=== PATIENT | male | born 1960 | race Two or more races ===

== ENCOUNTER 2020-01-23 06:45 | Inpatient (IN) | payer MEDICAID, OTHER, SELFPAY ==
[~2020-01-23] VITALS: Ht 177.8 cm; Wt 95.6 kg
--- NOTE | 2020-01-23 07:16 | NUR ---
Pt sitting on gurney in patient gown. NADN. No needs expressed. Call light within reach. ophthalmic technologist at bedside.
--- NOTE | 2020-01-23 07:30 | NUR ---
Pt resting on gurney connected to NIBP cuff, continous pulse ox monitor, and vehicle monitor technician. Pt reports cough and shorntess of breath for 5 days, urinary pain, burning, and possible retention for 4 days and bilateral swelling. Pt states, " [facility] left because [facility] was taking too long." Pt denies significant past medical history. Pt poor historian. Please see physical assessment. Pt is AOX4, skin is pink, warm, dry with bilateral lower extremity swelling. Pt has unlabored respirations with even chest rise and fall. Bed rail up for safety measures.
[2020-01-23] MEDS ORDERED: amlodipine (07:42)
[2020-01-23] MEDS ORDERED: potassium (07:42)
[2020-01-23] MEDS ORDERED: metoprolol (07:42)
[2020-01-23] MEDS ORDERED: lasix (07:42)
[2020-01-23 08:24] LABS: ANION GAP 7 mmol/L (5-15); CALCIUM 7.3 mg/dL (8.5-10.1); CHLORIDE 116 mmol/L (98-107)
[2020-01-23 08:29] LABS: ALANINE AMINOTRANSFERASE 30 U/L (12-78); ALKALINE PHOSPHATASE 72 U/L (45-117); BASOPHILS # (AUTO) 0.06 x10^3/uL (0-0.1); BASOPHILS % (AUTO) 1 % (0-1); BILIRUBIN,TOTAL 0.2 mg/dL (0.2-1.0); CREATININE 3.37 mg/dL (0.7-1.3); EOSINOPHILS # (AUTO) 0.35 x10^3/uL (0-0.4); EOSINOPHILS % (AUTO) 4 % (1-7); LYMPHOCYTES # (AUTO) 1.28 x10^3/uL (1-3.4); LYMPHOCYTES % (AUTO) 15 % (22-44); MD NO; MEAN CORPUSCULAR HEMOGLOBIN 29.5 pg (27.5-34.5); MEAN CORPUSCULAR HGB CONC 32.3 g/dL (33.2-36.2); MEAN PLATELET VOLUME 6.7 fL (7.4-10.4); MONOCYTES # (AUTO) 0.93 x10^3/uL (0.2-0.8); MONOCYTES % (AUTO) 11 % (2-9); NEUTROPHILS # (AUTO) 5.87 x10^3/uL (1.8-6.8); NEUTROPHILS % (AUTO) 69 % (42-75); PLATELET COUNT 307 x10^3/uL (130-400); RED BLOOD COUNT 3.49 x10^6/uL (4.38-5.82); RED CELL DISTRIBUTION WIDTH 14.3 % (9.4-14.8); TOTAL PROTEIN 6.5 g/dL (6.4-8.2); TROPONIN I 0.023 ng/mL (0.000-0.045)
[2020-01-23] MEDS ORDERED: FUROSEMIDE 40 MG/4 ML IV ONE (08:30)
[2020-01-23] MEDS ORDERED: FUROSEMIDE 40 MG/4 ML ONE (08:39)
[2020-01-23] MEDS ORDERED: SODIUM CHLORIDE 0.9% 1,000 ML IV ONE (08:42)
[2020-01-23] MEDS ORDERED: SODIUM CHLORIDE FLUSH 10ML SYR IVF ONE (09:00)
--- NOTE | 2020-01-23 09:25 | NUR ---
IV ESTABLISHED AND MEDICATED WITH LASIX NOTED ON SEP. PT NOTED TO HAVE LABORED BREATHING WHILE AT REST.
[2020-01-23 09:39] LABS: MICROSCOPIC INDICATED
--- NOTE | 2020-01-23 10:10 | NUR ---
Provided report to PAMELA Renteria. All questions answered. PAMELA Renteria to assume care at this time.
--- NOTE | 2020-01-23 10:10 | NUR ---
RECEIVED REPORT FROM SYED SANTIAGO AND ASSUMED CARE OF PT. PT ON HOSPITAL BED FOR COMFORT. STATES HE HAS VOIDED 3/4 OF URINAL SINCE GIVEN LASIX. PROVIDED SNACKS
--- NOTE | 2020-01-23 11:14 | NUR ---
BANQUET PREP COOK SPEAKING WITH PT. ASKED RN TO TURN OFF NORMAL SALINE.
[2020-01-23] MEDS ORDERED: ACETAMINOPHEN 325 MG TABLET PO PRN (13:00)
[2020-01-23] MEDS ORDERED: POLYETHYLENE GLYCOL 17 GM PACKET PO PRN (13:00)
[2020-01-23] MEDS ORDERED: DOCUSATE 100 MG CAPSULE PO PRN (13:00)
[2020-01-23] MEDS ORDERED: BISACODYL 10 MG SUPP PR PRN (13:00)
--- NOTE | 2020-01-23 13:07 | NUR ---
BREAK RN: PT ATE APPROX 25% OF MEAL. VSS, CALL LIGHT W/I REACH.
[2020-01-23 13:27] LABS: TROPONIN I < 0.015 ng/mL (0.000-0.045)
[2020-01-23] MEDS ORDERED: HEPARIN 5,000 UNITS/ML, 1ML ONE (14:05)
[2020-01-23] MEDS: HEPARIN 5,000 UNITS/ML, 1ML SQ SCH ×2 (14:19→20:48)
[2020-01-23] MEDS ORDERED: HYDROcodone/APAP 5/325 TABLET ONE (14:26)
[2020-01-23] MEDS: HYDROcodone/APAP 5/325 TABLET PO PRN (14:29)
--- NOTE | 2020-01-23 14:37 | NUR ---
C/O THROAT PAIN AND MEDICATED NOTED ON SEP.
--- NOTE | 2020-01-23 14:57 | NUR ---
REPORT TO ERIN SANTIAGO. TO BE TRANSPORTED TO THE FLOOR
[2020-01-23 15:56] VITALS: BP 178/108
[2020-01-23] MEDS: LABETALOL 5MG/ML, 20ML IVPush PRN (16:33)
[2020-01-23 17:05] VITALS: BP 158/92
[2020-01-23] MEDS ORDERED: AMLO-150 PO (18:03)
[2020-01-23] MEDS ORDERED: TAMS-11 PO (18:03)
[2020-01-23] MEDS ORDERED: POTA20TA14 PO (18:03)
[2020-01-23] MEDS ORDERED: MAGN400T36 PO (18:03)
[2020-01-23] MEDS ORDERED: FURO20TA3 PO (18:03)
[2020-01-23] MEDS ORDERED: METO50TA82 PO (18:07)
[2020-01-23 18:33] VITALS: BP 169/97
[2020-01-23 19:17] LABS: TROPONIN I < 0.015 ng/mL (0.000-0.045)
[2020-01-23] MEDS: METOPROLOL TARTRATE 50 MG TAB PO SCH (20:48)
[2020-01-23] MEDS ORDERED: hydrALAzine 20 MG/ML, 1ML IV ONE (21:30)
[2020-01-24 00:02] VITALS: BP 164/93
[2020-01-24] MEDS: HYDROcodone/APAP 5/325 TABLET PO PRN ×2 (01:24→22:59)
[2020-01-24 05:27] LABS: BASOPHILS # (AUTO) 0.06 x10^3/uL (0-0.1); BASOPHILS % (AUTO) 1 % (0-1); EOSINOPHILS # (AUTO) 0.31 x10^3/uL (0-0.4); EOSINOPHILS % (AUTO) 3 % (1-7); LYMPHOCYTES # (AUTO) 1.52 x10^3/uL (1-3.4); LYMPHOCYTES % (AUTO) 16 % (22-44); MD NO; MEAN CORPUSCULAR HEMOGLOBIN 29.7 pg (27.5-34.5); MEAN CORPUSCULAR HGB CONC 32.6 g/dL (33.2-36.2); MEAN PLATELET VOLUME 6.5 fL (7.4-10.4); MONOCYTES # (AUTO) 1.02 x10^3/uL (0.2-0.8); MONOCYTES % (AUTO) 11 % (2-9); NEUTROPHILS # (AUTO) 6.39 x10^3/uL (1.8-6.8); NEUTROPHILS % (AUTO) 69 % (42-75); PLATELET COUNT 335 x10^3/uL (130-400); RED BLOOD COUNT 3.47 x10^6/uL (4.38-5.82); RED CELL DISTRIBUTION WIDTH 14.5 % (9.4-14.8)
[2020-01-24] MEDS: HEPARIN 5,000 UNITS/ML, 1ML SQ SCH ×3 (05:29→20:28)
[2020-01-24 05:43] LABS: ANION GAP 8 mmol/L (5-15); CHLORIDE 114 mmol/L (98-107); CHOLESTEROL, TOTAL 199 mg/dL (140-239); CREATININE 2.79 mg/dL (0.7-1.3)
[2020-01-24 05:55] LABS: % IRON SATURATION 24 % (20-55); HDL CHOL % 20 % (26-37); HDL CHOLESTEROL (DIRECT) 40 mg/dL (40-60); IRON LEVEL 50 mcg/dL (65-175); LDL CHOLESTEROL,CALCULATED 127 mg/dL (54-169); LDL/HDL RATIO 3.2 (0.5-3.0); TOTAL IRON BINDING CAPACITY 205 mcg/dL (250-450); TRIGLYCERIDES 162 mg/dL (50-200); VLDL CHOLESTEROL 32 mg/dL (0-25)
[2020-01-24 08:10] VITALS: BP 168/87
[2020-01-24] MEDS: METOPROLOL TARTRATE 50 MG TAB PO SCH (08:48)
[2020-01-24] MEDS: GUAIFENESIN ER 600 MG TABLET PO SCH ×2 (08:48→20:26)
[2020-01-24] MEDS: TAMSULOSIN 0.4 MG CAP.ER.24H PO SCH (08:48)
[2020-01-24] MEDS: FUROSEMIDE 40 MG/4 ML IV SCH ×2 (08:55→17:13)
[2020-01-24] MEDS ORDERED: AMLODIPINE 5 MG TABLET PO SCH (09:00)
[2020-01-24 12:11] VITALS: BP 167/107
[2020-01-24 14:57] VITALS: BP 171/100
[2020-01-24] MEDS: LABETALOL 5MG/ML, 20ML IVPush PRN (15:02)
[2020-01-24 15:20] LABS: ANA SCREEN NEGATIVE (Negative)
[2020-01-24] MEDS ORDERED: hydrALAzine 20 MG/ML, 1ML IV PRN (17:30)
[2020-01-24 20:24] VITALS: BP 150/86
[2020-01-24] MEDS: AMLODIPINE 5 MG TABLET PO SCH (20:26)
[2020-01-24 20:31] LABS: CREATININE,URINE RANDOM 39.7 mg/dL
[2020-01-24] MEDS ORDERED: METOPROLOL TARTRATE 50 MG TAB PO SCH (21:00)
[2020-01-25 01:47] VITALS: BP 139/83
[2020-01-25 05:26] LABS: BASOPHILS # (AUTO) 0.05 x10^3/uL (0-0.1); BASOPHILS % (AUTO) 1 % (0-1); EOSINOPHILS # (AUTO) 0.34 x10^3/uL (0-0.4); EOSINOPHILS % (AUTO) 4 % (1-7); LYMPHOCYTES # (AUTO) 1.73 x10^3/uL (1-3.4); LYMPHOCYTES % (AUTO) 19 % (22-44); MD NO; MEAN CORPUSCULAR HEMOGLOBIN 29.6 pg (27.5-34.5); MEAN CORPUSCULAR HGB CONC 32.5 g/dL (33.2-36.2); MEAN PLATELET VOLUME 6.5 fL (7.4-10.4); MONOCYTES # (AUTO) 0.98 x10^3/uL (0.2-0.8); MONOCYTES % (AUTO) 11 % (2-9); NEUTROPHILS # (AUTO) 5.91 x10^3/uL (1.8-6.8); NEUTROPHILS % (AUTO) 66 % (42-75); PLATELET COUNT 335 x10^3/uL (130-400); RED CELL DISTRIBUTION WIDTH 14.6 % (9.4-14.8)
[2020-01-25 05:36] LABS: ANION GAP 7 mmol/L (5-15); CALCIUM 7.4 mg/dL (8.5-10.1); CHLORIDE 110 mmol/L (98-107)
[2020-01-25 05:38] LABS: CREATININE 2.51 mg/dL (0.7-1.3)
[2020-01-25] MEDS: HEPARIN 5,000 UNITS/ML, 1ML SQ SCH ×3 (05:44→21:55)
[2020-01-25] MEDS: FUROSEMIDE 40 MG/4 ML IV SCH ×2 (06:46→18:15)
[2020-01-25] MEDS ORDERED: ERGOCALCIFEROL 50,000 UNIT CAPSULE PO SCH (09:00)
[2020-01-25] MEDS: AMLODIPINE 5 MG TABLET PO SCH ×2 (09:17→21:55)
[2020-01-25] MEDS: GUAIFENESIN ER 600 MG TABLET PO SCH ×2 (09:17→21:56)
[2020-01-25] MEDS: TAMSULOSIN 0.4 MG CAP.ER.24H PO SCH (09:17)
[2020-01-25] MEDS: METOPROLOL TARTRATE 100 MG TAB PO SCH ×2 (09:18→21:56)
[2020-01-25 09:55] VITALS: BP 169/72
[2020-01-25 10:56] LABS: INTERNATIONAL NORMALIZED RATIO 0.98 (0.93-1.1); PROTHROMBIN TIME 10.4 Seconds (9.6-11.5)
[2020-01-25 13:25] VITALS: BP 164/71
[2020-01-25 13:27] LABS: AMPHETAMINE SCREEN, URINE Negative (Negative); BARBITURATE SCREEN, URINE Negative (Negative); BENZODIAZEPINE SCREEN, URINE Negative (Negative); CANNABINOID SCREEN, URINE Negative (Negative); COCAINE SCREEN, URINE Negative (Negative); METHADONE SCREEN, URINE Negative (Negative); OPIATE SCREEN, URINE Negative (Negative)
[2020-01-25 21:47] VITALS: BP 153/91
[2020-01-25] MEDS: HYDROcodone/APAP 5/325 TABLET PO PRN (21:56)
[2020-01-26] VITALS (8 sets, daily range): BP systolic 127–165; BP diastolic 79–99
[2020-01-26] MEDS: HEPARIN 5,000 UNITS/ML, 1ML SQ SCH ×4 (00:24→20:54)
[2020-01-26 05:25] LABS: ANION GAP 7 mmol/L (5-15); CALCIUM 7.6 mg/dL (8.5-10.1); CHLORIDE 111 mmol/L (98-107); CREATININE 2.52 mg/dL (0.7-1.3)
[2020-01-26] MEDS: GUAIFENESIN ER 600 MG TABLET PO SCH ×2 (08:24→20:50)
[2020-01-26] MEDS: AMLODIPINE 5 MG TABLET PO SCH ×2 (08:24→20:50)
[2020-01-26] MEDS: FUROSEMIDE 40 MG/4 ML IV SCH ×2 (08:25→16:22)
[2020-01-26] MEDS: TAMSULOSIN 0.4 MG CAP.ER.24H PO SCH (08:25)
[2020-01-26] MEDS: METOPROLOL TARTRATE 100 MG TAB PO SCH ×3 (08:25→20:51)
[2020-01-26] MEDS ORDERED: hydrALAzine 20 MG/ML, 1ML IV PRN (13:30)
[2020-01-27] VITALS (8 sets, daily range): BP systolic 114–148; BP diastolic 64–84
[2020-01-27] MEDS ORDERED: hydrALAzine 20 MG/ML, 1ML IV PRN (01:30)
[2020-01-27 05:19] LABS: BASOPHILS # (AUTO) 0.06 x10^3/uL (0-0.1); BASOPHILS % (AUTO) 1 % (0-1); EOSINOPHILS # (AUTO) 0.36 x10^3/uL (0-0.4); EOSINOPHILS % (AUTO) 4 % (1-7); LYMPHOCYTES # (AUTO) 2.39 x10^3/uL (1-3.4); LYMPHOCYTES % (AUTO) 29 % (22-44); MD NO; MEAN CORPUSCULAR HEMOGLOBIN 29.8 pg (27.5-34.5); MEAN CORPUSCULAR HGB CONC 32.8 g/dL (33.2-36.2); MEAN PLATELET VOLUME 6.9 fL (7.4-10.4); MONOCYTES # (AUTO) 0.95 x10^3/uL (0.2-0.8); MONOCYTES % (AUTO) 12 % (2-9); NEUTROPHILS # (AUTO) 4.41 x10^3/uL (1.8-6.8); NEUTROPHILS % (AUTO) 54 % (42-75); PLATELET COUNT 392 x10^3/uL (130-400); RED BLOOD COUNT 3.61 x10^6/uL (4.38-5.82); RED CELL DISTRIBUTION WIDTH 14.3 % (9.4-14.8)
[2020-01-27 05:26] LABS: CHLORIDE 110 mmol/L (98-107)
[2020-01-27 05:30] LABS: ALBUMIN 1.9 g/dL (3.4-5.0); ANION GAP 8 mmol/L (5-15); CALCIUM 7.4 mg/dL (8.5-10.1); CREATININE 2.56 mg/dL (0.7-1.3)
[2020-01-27] MEDS: FUROSEMIDE 40 MG/4 ML IV SCH (08:12)
[2020-01-27] MEDS: AMLODIPINE 5 MG TABLET PO SCH ×2 (08:19→20:45)
[2020-01-27] MEDS: METOPROLOL TARTRATE 100 MG TAB PO SCH ×3 (08:19→20:45)
[2020-01-27] MEDS ORDERED: FLUMAZENIL 0.1 MG/1 ML, 5ML ONE (09:14)
[2020-01-27] MEDS ORDERED: NALOXONE 1 MG/ML, 2ML ONE (09:14)
[2020-01-27] MEDS ORDERED: MIDAZOLAM 1 MG/ML, 5ML ONE (09:14)
[2020-01-27] MEDS ORDERED: FENTANYL PF 100 MCG/2ML ONE (09:14)
[2020-01-27] MEDS: GUAIFENESIN ER 600 MG TABLET PO SCH ×3 (11:12→20:48)
[2020-01-27] MEDS: TAMSULOSIN 0.4 MG CAP.ER.24H PO SCH (11:12)
[2020-01-27] MEDS: POTASSIUM CHLORIDE 20 MEQ TAB.ER.PRT PO SCH (11:12)
[2020-01-27] MEDS: HEPARIN 5,000 UNITS/ML, 1ML SQ SCH ×2 (15:04→20:45)
[2020-01-27] MEDS ORDERED: METOLAZONE 5 MG TABLET PO SCH (16:00)
[2020-01-27] MEDS ORDERED: FUROSEMIDE 80 MG TABLET PO SCH (17:00)
[2020-01-28 00:59] VITALS: BP 124/80
[2020-01-28] MEDS: HEPARIN 5,000 UNITS/ML, 1ML SQ SCH ×3 (05:19→20:53)
[2020-01-28 05:30] LABS: ANION GAP 9 mmol/L (5-15); CALCIUM 7.5 mg/dL (8.5-10.1); CHLORIDE 108 mmol/L (98-107); CREATININE 3.87 mg/dL (0.7-1.3)
[2020-01-28 07:45] VITALS: BP 141/73
[2020-01-28] MEDS: METOPROLOL TARTRATE 100 MG TAB PO SCH ×3 (09:49→20:54)
[2020-01-28] MEDS: GUAIFENESIN ER 600 MG TABLET PO SCH ×2 (09:49→20:54)
[2020-01-28] MEDS: AMLODIPINE 5 MG TABLET PO SCH ×2 (09:49→20:54)
[2020-01-28] MEDS: TAMSULOSIN 0.4 MG CAP.ER.24H PO SCH (09:49)
[2020-01-28] MEDS: POTASSIUM CHLORIDE 20 MEQ TAB.ER.PRT PO SCH (12:49)
[2020-01-28 13:39] VITALS: BP 116/70
[2020-01-28 20:32] VITALS: BP 130/84
[2020-01-28] MEDS: HYDROcodone/APAP 5/325 TABLET PO PRN (21:04)
[2020-01-29 02:00] VITALS: BP 130/68
[2020-01-29] MEDS: HEPARIN 5,000 UNITS/ML, 1ML SQ SCH (05:18)
[2020-01-29 06:02] LABS: MEAN CORPUSCULAR HEMOGLOBIN 29.8 pg (27.5-34.5); MEAN CORPUSCULAR HGB CONC 32.5 g/dL (33.2-36.2); MEAN PLATELET VOLUME 6.9 fL (7.4-10.4); PLATELET COUNT 398 x10^3/uL (130-400); RED BLOOD COUNT 2.98 x10^6/uL (4.38-5.82); RED CELL DISTRIBUTION WIDTH 14.5 % (9.4-14.8)
[2020-01-29 06:14] LABS: BASOPHILS # (AUTO) 0.05 x10^3/uL (0-0.1); BASOPHILS % (AUTO) 0 % (0-1); EOSINOPHILS # (AUTO) 0.01 x10^3/uL (0-0.4); EOSINOPHILS % (AUTO) 0 % (1-7); LYMPHOCYTES # (AUTO) 1.88 x10^3/uL (1-3.4); LYMPHOCYTES % (AUTO) 14 % (22-44); MD SCAN; MONOCYTES # (AUTO) 1.07 x10^3/uL (0.2-0.8); MONOCYTES % (AUTO) 8 % (2-9); NEUTROPHILS # (AUTO) 10.47 x10^3/uL (1.8-6.8); NEUTROPHILS % (AUTO) 78 % (42-75)
[2020-01-29 06:17] LABS: CALCIUM 7.3 mg/dL (8.5-10.1); CHLORIDE 112 mmol/L (98-107)
[2020-01-29 06:20] LABS: ANION GAP 10 mmol/L (5-15); CREATININE 3.29 mg/dL (0.7-1.3)
[2020-01-29 07:50] VITALS: BP 130/79
[2020-01-29] MEDS ORDERED: FUROSEMIDE 40 MG/4 ML ONE (08:09)
[2020-01-29] MEDS: POTASSIUM CHLORIDE 20 MEQ TAB.ER.PRT PO SCH (08:13)
[2020-01-29] MEDS: AMLODIPINE 5 MG TABLET PO SCH (08:14)
[2020-01-29] MEDS: TAMSULOSIN 0.4 MG CAP.ER.24H PO SCH (08:14)
[2020-01-29] MEDS: GUAIFENESIN ER 600 MG TABLET PO SCH (08:14)
[2020-01-29] MEDS: METOPROLOL TARTRATE 100 MG TAB PO SCH (08:14)
[2020-01-29] MEDS ORDERED: FUROSEMIDE 40 MG TABLET PO SCH (09:00)
[2020-01-29] MEDS ORDERED: HYDR-3341 PO (11:12)
[2020-01-29] MEDS ORDERED: AMLO-150 PO (11:12)
[2020-01-29] MEDS ORDERED: FURO20TA3 PO (11:12)
[2020-01-29] MEDS ORDERED: CLON0.2T10 PO (11:12)
[2020-01-29] MEDS ORDERED: METO-99 PO (11:12)
== END 2020-01-29 12:55 | disposition home or self-care (01) | DRG 698 ==
LOC: ED 08:31 → EDIP 09:15 → 5SO 15:29 → 4WST 01-27 05:42 → DCLOUNGE 01-29 12:45
PROVIDERS: ADMIT Internal Medicine; ATTEND Internal Medicine
PROC: 0TB13ZX Excision of Left Kidney, Percutaneous Approach, Diagnostic (ICD-10-PCS; principal; 2020-01-27)
DX: N04.9 Nephrotic syndrome with unspecified morphologic changes (principal); I50.43 Acute on chronic combined systolic (congestive) and diastolic (congestive) heart failure; J96.00 Acute respiratory failure, unspecified whether with hypoxia or hypercapnia; I13.0 Hypertensive heart and chronic kidney disease with heart failure and stage 1 through stage 4 chronic kidney disease, or unspecified chronic kidney disease; E87.2 Acidosis; E44.0 Moderate protein-calorie malnutrition; N17.0 Acute kidney failure with tubular necrosis; D64.9 Anemia, unspecified; F19.10 Other psychoactive substance abuse, uncomplicated; N40.0 Benign prostatic hyperplasia without lower urinary tract symptoms; N18.3 Chronic kidney disease, stage 3 (moderate); E66.9 Obesity, unspecified; R19.00 Intra-abdominal and pelvic swelling, mass and lump, unspecified site; I08.3 Combined rheumatic disorders of mitral, aortic and tricuspid valves; I70.0 Atherosclerosis of aorta; Z20.828 Contact with and (suspected) exposure to other viral communicable diseases; Z82.49 Family history of ischemic heart disease and other diseases of the circulatory system; Z83.3 Family history of diabetes mellitus; Z88.8 Allergy status to other drugs, medicaments and biological substances; Z79.899 Other long term (current) drug therapy; Z68.30 Body mass index [BMI] 30.0-30.9, adult
CPT/HCPCS: 36415; 50200; 71045; 76770; 77012; 80048; 80053; 80061; 80069; 80307; 81001; 82306; 82570; 82595; 82728; 83516; 83540; 83550; 83735; 83880; 83970; 84100; 84155; 84156; 84165; 84443; 84484; 85025; 85610; 86038; 86160; 86162; 86256; 86706; 86803; 87086; 87340; 87635; 88300; 88305; 88313; 88341; 88342; 88346; 88348; 88350; 93005; 93306; 96361; 96374; 99156; 99157; 99285; G0378; J1644; J1940; J2250; J3010; J0360; J2310; J7030; J7512

== ENCOUNTER 2020-03-17 17:53 | Inpatient (IN) | payer OTHER ==
[~2020-03-17] VITALS: Ht 175.3 cm; Wt 90.0 kg
[~2020-03-17 17:53] MED LIST: AMLO-150 PO; CLON0.2T10 PO; FURO20TA3 PO; HYDR-3341 PO; MAGN400T36 PO; METO-99 PO; METO50TA82 PO; POTA20TA14 PO; TAMS-11 PO; amlodipine; lasix; metoprolol; potassium
[2020-03-17] MEDS ORDERED: SODIUM CHLORIDE 0.9% 1,000 ML IV ONE (18:02)
[2020-03-17] MEDS ORDERED: DEXAMETHASONE 4 MG/ML, 1ML ONE (18:24)
[2020-03-17] MEDS ORDERED: DEXAMETHASONE 4 MG/ML, 1ML IVPush ONE (18:30)
[2020-03-17 18:35] LABS: BASOPHILS % (AUTO) 0 % (0-1); EOSINOPHILS # (AUTO) 0.14 x10^3/uL (0-0.4); EOSINOPHILS % (AUTO) 1 % (1-7); LYMPHOCYTES # (AUTO) 0.47 x10^3/uL (1-3.4); LYMPHOCYTES % (AUTO) 4 % (22-44); MD NO; MEAN CORPUSCULAR HEMOGLOBIN 30.6 pg (27.5-34.5); MEAN CORPUSCULAR HGB CONC 33.2 g/dL (33.2-36.2); MEAN CORPUSCULAR VOLUME 92.4 fL (81-97); MEAN PLATELET VOLUME 7.3 fL (7.4-10.4); MONOCYTES # (AUTO) 0.21 x10^3/uL (0.2-0.8); MONOCYTES % (AUTO) 2 % (2-9); NEUTROPHILS # (AUTO) 10.71 x10^3/uL (1.8-6.8); NEUTROPHILS % (AUTO) 93 % (42-75); PLATELET COUNT 230 x10^3/uL (130-400); RED BLOOD COUNT 3.97 x10^6/uL (4.38-5.82); RED CELL DISTRIBUTION WIDTH 15.5 % (9.4-14.8)
[2020-03-17 18:45] LABS: ALANINE AMINOTRANSFERASE 25 U/L (12-78); ALBUMIN 2.2 g/dL (3.4-5.0); ANION GAP 7 mmol/L (5-15); CALCIUM 7.4 mg/dL (8.5-10.1); CHLORIDE 111 mmol/L (98-107)
[2020-03-17] MEDS ORDERED: CEFTRIAXONE PMX 1GM/50ML 50 ML ONE (18:45)
[2020-03-17 18:48] LABS: ALKALINE PHOSPHATASE 34 U/L (45-117); BILIRUBIN,TOTAL 0.3 mg/dL (0.2-1.0); CREATININE 2.56 mg/dL (0.7-1.3); TOTAL PROTEIN 6.4 g/dL (6.4-8.2)
[2020-03-17] MEDS ORDERED: CEFTRIAXONE PMX 1GM/50ML 50 ML IV ONE (19:00)
[2020-03-17] MEDS ORDERED: DOXYCYCLINE 100 MG in DEXTROSE 5% 250 ML IV SCH (19:00)
[2020-03-17 19:14] LABS: D-DIMER (DIC) 0.63 ug/mlFEU (0.00-0.52)
[2020-03-17] MEDS ORDERED: ACETAMINOPHEN 500 MG TABLET ONE (19:20)
[2020-03-17] MEDS ORDERED: ACETAMINOPHEN 500 MG TABLET PO ONE (19:30)
--- NOTE | 2020-03-17 19:30 | NUR ---
PT MOVED FROM RM 31 TO RM 34 TO DO OPTIFLOW.
[2020-03-17] MEDS ORDERED: ONDANSETRON 2MG/ML, 2ML IVPush PRN (20:00)
[2020-03-17] MEDS ORDERED: GUAIFENESIN/DM 200-20MG, 10ML UDC PO PRN (20:00)
--- NOTE | 2020-03-17 20:04 | NUR ---
HOSPITALIST AT BEDSIDE.
--- NOTE | 2020-03-17 20:06 | NUR ---
PT STATES HE FEELS MUCH BETTER AND IS HUNGRY. GAVE PT CRACKERS AND SPRITE PER HOSPITALIST.
--- NOTE | 2020-03-17 20:30 | NUR ---
REPORT GIVEN TO PAMELA BOURGEOIS
[2020-03-17 21:07] LABS: AMPHETAMINE SCREEN, URINE Positive (Negative); BARBITURATE SCREEN, URINE Negative (Negative); BENZODIAZEPINE SCREEN, URINE Negative (Negative); CANNABINOID SCREEN, URINE Negative (Negative); COCAINE SCREEN, URINE Negative (Negative); METHADONE SCREEN, URINE Negative (Negative); OPIATE SCREEN, URINE Negative (Negative)
[2020-03-17] MEDS: FAMOTIDINE 20 MG/2 ML IVPush SCH (21:12)
[2020-03-17] MEDS: HEPARIN 5,000 UNITS/ML, 1ML SQ SCH (21:12)
[2020-03-17] MEDS: FUROSEMIDE 20 MG TABLET PO SCH (21:13)
[2020-03-17] MEDS: METOPROLOL TARTRATE 100 MG TAB PO SCH (21:13)
[2020-03-17] MEDS: AMLODIPINE 5 MG TABLET PO SCH (21:13)
[2020-03-17] MEDS: POTASSIUM CHLORIDE 20 MEQ TAB.ER.PRT PO SCH (21:13)
[2020-03-17] MEDS ORDERED: ALBUTEROL SULFATE 2.5 MG/3 ML NPPB PRN (21:30)
[2020-03-17 22:19] VITALS: BP 133/81
[2020-03-18 04:24] VITALS: BP 126/79
[2020-03-18] MEDS: HEPARIN 5,000 UNITS/ML, 1ML SQ SCH ×3 (04:32→20:13)
[2020-03-18 04:51] LABS: ALBUMIN 1.9 g/dL (3.4-5.0); ANION GAP 7 mmol/L (5-15); CALCIUM 7.3 mg/dL (8.5-10.1); CHLORIDE 114 mmol/L (98-107)
[2020-03-18 04:57] LABS: ALANINE AMINOTRANSFERASE 23 U/L (12-78); ALKALINE PHOSPHATASE 34 U/L (45-117); BILIRUBIN,TOTAL 0.3 mg/dL (0.2-1.0); CREATININE 2.07 mg/dL (0.7-1.3); TOTAL PROTEIN 6.2 g/dL (6.4-8.2)
[2020-03-18 05:47] LABS: BASOPHILS % (AUTO) 0 % (0-1); EOSINOPHILS # (AUTO) 0.09 x10^3/uL (0-0.4); EOSINOPHILS % (AUTO) 1 % (1-7); LYMPHOCYTES # (AUTO) 0.53 x10^3/uL (1-3.4); LYMPHOCYTES % (AUTO) 4 % (22-44); MD NO; MEAN CORPUSCULAR HEMOGLOBIN 30.5 pg (27.5-34.5); MEAN CORPUSCULAR HGB CONC 32.8 g/dL (33.2-36.2); MEAN CORPUSCULAR VOLUME 92.9 fL (81-97); MEAN PLATELET VOLUME 7.5 fL (7.4-10.4); MONOCYTES # (AUTO) 0.09 x10^3/uL (0.2-0.8); MONOCYTES % (AUTO) 1 % (2-9); NEUTROPHILS # (AUTO) 11.46 x10^3/uL (1.8-6.8); NEUTROPHILS % (AUTO) 94 % (42-75); PLATELET COUNT 223 x10^3/uL (130-400); RED BLOOD COUNT 3.79 x10^6/uL (4.38-5.82); RED CELL DISTRIBUTION WIDTH 16.1 % (9.4-14.8)
[2020-03-18] MEDS: FAMOTIDINE 20 MG/2 ML IVPush SCH ×2 (08:42→20:11)
[2020-03-18] MEDS: MAGNESIUM OXIDE 400 MG TABLET PO SCH (08:43)
[2020-03-18] MEDS: DEXAMETHASONE 4 MG TABLET PO SCH ×2 (08:43→16:18)
[2020-03-18] MEDS: AMLODIPINE 5 MG TABLET PO SCH ×2 (08:43→20:12)
[2020-03-18] MEDS: TAMSULOSIN 0.4 MG CAP.ER.24H PO SCH (08:44)
[2020-03-18] MEDS: POTASSIUM CHLORIDE 20 MEQ TAB.ER.PRT PO SCH ×2 (08:44→20:12)
[2020-03-18] MEDS: FUROSEMIDE 20 MG TABLET PO SCH ×2 (08:44→20:12)
[2020-03-18] MEDS: AZITHROMYCIN 500 MG TABLET PO SCH (08:44)
[2020-03-18] MEDS: METOPROLOL TARTRATE 100 MG TAB PO SCH ×3 (08:45→20:32)
[2020-03-18] MEDS: ACETAMINOPHEN 325 MG TABLET PO PRN (16:26)
[2020-03-18] MEDS ORDERED: LORazepam 1MG TABLET ONE (19:45)
[2020-03-18] MEDS: CEFTRIAXONE PMX 1GM/50ML 50 ML IV SCH (20:11)
[2020-03-19 04:00] VITALS: BP 108/72
[2020-03-19] MEDS ORDERED: LORazepam 1MG TABLET ONE (04:34)
[2020-03-19] MEDS: HEPARIN 5,000 UNITS/ML, 1ML SQ SCH ×3 (04:38→20:25)
[2020-03-19 04:43] LABS: BASOPHILS # (AUTO) 0.02 x10^3/uL (0-0.1); BASOPHILS % (AUTO) 0 % (0-1); EOSINOPHILS # (AUTO) 0.22 x10^3/uL (0-0.4); EOSINOPHILS % (AUTO) 2 % (1-7); LYMPHOCYTES # (AUTO) 0.74 x10^3/uL (1-3.4); LYMPHOCYTES % (AUTO) 6 % (22-44); MD NO; MEAN CORPUSCULAR HEMOGLOBIN 30.6 pg (27.5-34.5); MEAN CORPUSCULAR HGB CONC 32.9 g/dL (33.2-36.2); MEAN CORPUSCULAR VOLUME 93.1 fL (81-97); MEAN PLATELET VOLUME 7.3 fL (7.4-10.4); MONOCYTES # (AUTO) 0.15 x10^3/uL (0.2-0.8); MONOCYTES % (AUTO) 1 % (2-9); NEUTROPHILS # (AUTO) 11.84 x10^3/uL (1.8-6.8); NEUTROPHILS % (AUTO) 91 % (42-75); PLATELET COUNT 240 x10^3/uL (130-400); RED BLOOD COUNT 4.06 x10^6/uL (4.38-5.82)
[2020-03-19 04:57] LABS: ANION GAP 8 mmol/L (5-15); CALCIUM 7.7 mg/dL (8.5-10.1); CHLORIDE 113 mmol/L (98-107); CREATININE 2.22 mg/dL (0.7-1.3)
[2020-03-19] MEDS: ACETAMINOPHEN 325 MG TABLET PO PRN (05:48)
[2020-03-19] MEDS: DEXAMETHASONE 4 MG TABLET PO SCH ×2 (07:55→16:47)
[2020-03-19] MEDS ORDERED: MIDAZOLAM 1 MG/ML, 5ML ONE (08:00)
[2020-03-19] MEDS ORDERED: PROPRANOLOL 1 MG/ML, 1ML ONE (08:00)
[2020-03-19] MEDS ORDERED: ETOMIDATE 20 MG/10 ML ONE (08:00)
[2020-03-19] MEDS ORDERED: SUCCINYLCHOLINE 20 MG/ML, 10ML ONE (08:00)
[2020-03-19] MEDS: FAMOTIDINE 20 MG/2 ML IVPush SCH (08:11)
[2020-03-19] MEDS: MAGNESIUM OXIDE 400 MG TABLET PO SCH (08:13)
[2020-03-19] MEDS: METOPROLOL TARTRATE 100 MG TAB PO SCH ×2 (08:13→21:00)
[2020-03-19] MEDS: AZITHROMYCIN 500 MG TABLET PO SCH (08:14)
[2020-03-19] MEDS: AMLODIPINE 5 MG TABLET PO SCH ×2 (08:14→21:00)
[2020-03-19] MEDS: FUROSEMIDE 20 MG TABLET PO SCH ×2 (08:14→20:25)
[2020-03-19] MEDS: TAMSULOSIN 0.4 MG CAP.ER.24H PO SCH (08:14)
[2020-03-19] MEDS: POTASSIUM CHLORIDE 20 MEQ TAB.ER.PRT PO SCH ×2 (08:14→20:27)
[2020-03-19] MEDS: DOCUSATE 100 MG CAPSULE PO PRN (13:17)
[2020-03-19] MEDS: LORazepam 1MG TABLET PO PRN ×2 (13:18→20:25)
[2020-03-19] MEDS: ASCORBIC ACID 500 MG TABLET PO SCH (17:00)
[2020-03-19] MEDS: CEFTRIAXONE PMX 1GM/50ML 50 ML IV SCH (20:24)
[2020-03-19] MEDS: THIAMINE 100MG TABLET PO SCH (20:25)
[2020-03-19] MEDS ORDERED: ALBUTEROL/IPRATROPIUM 2.5MG/0.5MG, 3 ML ONE (21:23)
[2020-03-19] MEDS ORDERED: NOREPINEPHRINE 8 MG in SODIUM CHLORIDE 0.9% 242 ML IV PRN (21:23)
[2020-03-19] MEDS ORDERED: DEXTROSE 4 GM TAB.CHEW PO PRN (21:30)
[2020-03-19] MEDS ORDERED: PHARMACY MAY ADJ FOR RENAL FX MC SCH (21:30)
[2020-03-19] MEDS ORDERED: SENNA/DOCUSATE TABLET NG PRN (21:30)
[2020-03-19] MEDS: ALBUTEROL/IPRATROPIUM 2.5MG/0.5MG, 3 ML INLINE SCH (21:30)
[2020-03-19] MEDS: SODIUM CHLORIDE FLUSH 10ML SYR IVF SCH (21:30)
[2020-03-19] MEDS ORDERED: SENNA 176 MG/5 ML ORAL SOL NG PRN (21:30)
[2020-03-19] MEDS ORDERED: GLUCAGON 1 MG IM PRN (21:30)
[2020-03-19] MEDS ORDERED: DEXTROSE 50%, 50ML SYRINGE IVPush PRN (21:30)
[2020-03-19] MEDS ORDERED: BISACODYL 10 MG SUPP PR PRN (21:30)
[2020-03-19] MEDS ORDERED: LABETALOL 5MG/ML, 20ML ONE (21:46)
[2020-03-19] MEDS ORDERED: hydrALAzine 20 MG/ML, 1ML ONE (21:47)
[2020-03-19] MEDS ORDERED: LIDOCAINE-MPF 1%, 5ML ONE (21:48)
[2020-03-19] MEDS: FENTANYL PF 100 MCG/2ML IVPush PRN (21:50)
[2020-03-19] MEDS ORDERED: KETAMINE 10 MG/ML, 20ML IV ONE ×3 (22:00)
[2020-03-19] MEDS ORDERED: hydrALAzine 20 MG/ML, 1ML IV PRN (22:00)
[2020-03-19] MEDS: LIDOCAINE-MPF 1%, 2ML ENDO PRN (22:04)
[2020-03-19 22:24] LABS: TRIGLYCERIDES 243 mg/dL (50-200)
[2020-03-19 22:27] LABS: TROPONIN I < 0.015 ng/mL (0.000-0.045)
[2020-03-19] MEDS ORDERED: VECURONIUM 50 MG in SODIUM CHLORIDE 0.9% 50 ML IV PRN (22:30)
[2020-03-20] MEDS: PROPOFOL 100 ML IV PRN ×4 (00:10→20:07)
[2020-03-20] MEDS: ALBUTEROL/IPRATROPIUM 2.5MG/0.5MG, 3 ML INLINE SCH ×6 (01:30→22:30)
[2020-03-20 03:48] LABS: BASOPHILS # (AUTO) 0.06 x10^3/uL (0-0.1); BASOPHILS % (AUTO) 0 % (0-1); EOSINOPHILS # (AUTO) 0.07 x10^3/uL (0-0.4); EOSINOPHILS % (AUTO) 0 % (1-7); LYMPHOCYTES # (AUTO) 0.52 x10^3/uL (1-3.4); LYMPHOCYTES % (AUTO) 3 % (22-44); MD NO; MEAN CORPUSCULAR HEMOGLOBIN 30.5 pg (27.5-34.5); MEAN CORPUSCULAR HGB CONC 33.1 g/dL (33.2-36.2); MEAN CORPUSCULAR VOLUME 92.1 fL (81-97); MEAN PLATELET VOLUME 7.6 fL (7.4-10.4); MONOCYTES # (AUTO) 0.39 x10^3/uL (0.2-0.8); MONOCYTES % (AUTO) 3 % (2-9); NEUTROPHILS # (AUTO) 14.68 x10^3/uL (1.8-6.8); NEUTROPHILS % (AUTO) 93 % (42-75); PLATELET COUNT 217 x10^3/uL (130-400); RED BLOOD COUNT 3.62 x10^6/uL (4.38-5.82); RED CELL DISTRIBUTION WIDTH 16.4 % (9.4-14.8)
[2020-03-20 03:50] LABS: ALANINE AMINOTRANSFERASE 27 U/L (12-78); ALBUMIN 1.9 g/dL (3.4-5.0); ANION GAP 9 mmol/L (5-15); CALCIUM 7.9 mg/dL (8.5-10.1); CHLORIDE 115 mmol/L (98-107); CREATININE 2.04 mg/dL (0.7-1.3)
[2020-03-20 03:55] LABS: ALKALINE PHOSPHATASE 34 U/L (45-117); BILIRUBIN,TOTAL 0.2 mg/dL (0.2-1.0); TOTAL PROTEIN 6.1 g/dL (6.4-8.2); TROPONIN I < 0.015 ng/mL (0.000-0.045)
[2020-03-20] MEDS: HEPARIN 5,000 UNITS/ML, 1ML SQ SCH ×2 (04:27→12:38)
[2020-03-20] MEDS: ASCORBIC ACID 500 MG TABLET PO SCH ×3 (07:59→16:27)
[2020-03-20] MEDS: SODIUM CHLORIDE FLUSH 10ML SYR IVF SCH ×2 (07:59→20:06)
[2020-03-20] MEDS: ZINC SULFATE 220 MG CAPSULE PO SCH (07:59)
[2020-03-20] MEDS: CHOLECALCIFEROL 5,000u TAB PO SCH (08:00)
[2020-03-20] MEDS: THIAMINE 100MG TABLET PO SCH ×2 (08:00→20:06)
[2020-03-20] MEDS: AMLODIPINE 5 MG TABLET PO SCH ×2 (08:00→20:06)
[2020-03-20] MEDS: METOPROLOL TARTRATE 100 MG TAB PO SCH ×2 (08:00→20:06)
[2020-03-20] MEDS: FUROSEMIDE 20 MG TABLET PO SCH ×2 (08:01→20:05)
[2020-03-20] MEDS: FAMOTIDINE 20 MG/2 ML IVPush SCH (08:01)
[2020-03-20] MEDS: AZITHROMYCIN 500 MG TABLET PO SCH (08:03)
[2020-03-20] MEDS: DEXAMETHASONE 4 MG TABLET PO SCH ×2 (08:03→16:27)
[2020-03-20] MEDS: TAMSULOSIN 0.4 MG CAP.ER.24H PO SCH (08:04)
[2020-03-20] MEDS: FENTANYL PF 100 MCG/2ML IVPush PRN ×2 (09:30→15:16)
[2020-03-20] MEDS ORDERED: HEPARIN 5,000 UNITS/ML, 1ML IV ONE (13:30)
[2020-03-20] MEDS: HEPARIN 25,000 UNITS/250ML PMX 250 ML IV PRN (13:38)
[2020-03-20] MEDS: LIDOCAINE-MPF 1%, 2ML ENDO PRN (18:52)
[2020-03-20] MEDS: CEFTRIAXONE PMX 1GM/50ML 50 ML IV SCH (20:05)
[2020-03-21] MEDS: FENTANYL PF 100 MCG/2ML IVPush PRN ×3 (01:15→08:04)
[2020-03-21] MEDS: PROPOFOL 100 ML IV PRN ×5 (01:16→21:07)
[2020-03-21] MEDS: ALBUTEROL/IPRATROPIUM 2.5MG/0.5MG, 3 ML INLINE SCH ×7 (01:30→22:59)
[2020-03-21 04:55] LABS: MEAN CORPUSCULAR HEMOGLOBIN 29.9 pg (27.5-34.5); MEAN CORPUSCULAR HGB CONC 32.1 g/dL (33.2-36.2); MEAN CORPUSCULAR VOLUME 93.1 fL (81-97); MEAN PLATELET VOLUME 7.3 fL (7.4-10.4); PLATELET COUNT 214 x10^3/uL (130-400); RED BLOOD COUNT 3.36 x10^6/uL (4.38-5.82); RED CELL DISTRIBUTION WIDTH 16.4 % (9.4-14.8)
[2020-03-21 05:28] LABS: BASOPHILS % (AUTO) 0 % (0-1); EOSINOPHILS % (AUTO) 0 % (1-7); LYMPHOCYTES # (AUTO) 0.32 x10^3/uL (1-3.4); LYMPHOCYTES % (AUTO) 2 % (22-44); MD SCAN; MONOCYTES # (AUTO) 0.23 x10^3/uL (0.2-0.8); MONOCYTES % (AUTO) 2 % (2-9); NEUTROPHILS # (AUTO) 12.56 x10^3/uL (1.8-6.8); NEUTROPHILS % (AUTO) 96 % (42-75)
[2020-03-21 05:41] LABS: ANION GAP 14 mmol/L (5-15); CALCIUM 7.3 mg/dL (8.5-10.1); CHLORIDE 112 mmol/L (98-107)
[2020-03-21 05:42] LABS: CREATININE 2.65 mg/dL (0.7-1.3)
[2020-03-21] MEDS: DEXAMETHASONE 4 MG TABLET PO SCH ×2 (06:12→16:58)
[2020-03-21] MEDS: THIAMINE 100MG TABLET PO SCH ×2 (07:40→21:03)
[2020-03-21] MEDS: CHOLECALCIFEROL 5,000u TAB PO SCH (07:41)
[2020-03-21] MEDS: ASCORBIC ACID 500 MG TABLET PO SCH ×3 (07:41→16:58)
[2020-03-21] MEDS: FAMOTIDINE 20 MG/2 ML IVPush SCH (07:41)
[2020-03-21] MEDS: AZITHROMYCIN 500 MG TABLET PO SCH (07:41)
[2020-03-21] MEDS: SODIUM CHLORIDE FLUSH 10ML SYR IVF SCH ×2 (07:42→21:06)
[2020-03-21] MEDS: ZINC SULFATE 220 MG CAPSULE PO SCH (07:43)
[2020-03-21] MEDS: TAMSULOSIN 0.4 MG CAP.ER.24H PO SCH (09:00)
[2020-03-21] MEDS: METOPROLOL TARTRATE 100 MG TAB PO SCH ×2 (09:00→21:03)
[2020-03-21] MEDS: FENTANYL PF 1,000 MCG in SODIUM CHLORIDE 0.9% 80 ML IV PRN ×3 (09:51→16:56)
[2020-03-21] MEDS: AMLODIPINE 5 MG TABLET PO SCH (09:52)
[2020-03-21] MEDS: MIDAZOLAM HCL 50 MG in SODIUM CHLORIDE 0.9% 40 ML IV PRN ×5 (11:55→23:28)
[2020-03-21] MEDS: INSULIN LISPRO 100 UNITS/ML, PEN SQ-INSULIN SCH ×3 (12:08→21:00)
[2020-03-21] MEDS: QUETIAPINE 25MG TABLET PO SCH ×2 (13:50→21:03)
[2020-03-21] MEDS ORDERED: LIDOCAINE-MPF 1%, 2ML ENDO SCH (15:00)
[2020-03-21] MEDS ORDERED: FENTANYL PF 2,500 MCG in SODIUM CHLORIDE 0.9% 200 ML IV PRN (18:30)
[2020-03-21] MEDS: FENTANYL PF 2,500 MCG in SODIUM CHLORIDE 0.9% 200 ML IV PRN (19:41)
[2020-03-21] MEDS: CEFTRIAXONE PMX 1GM/50ML 50 ML IV SCH (19:41)
[2020-03-21] MEDS ORDERED: SODIUM CHLORIDE 0.9% 1,000ML IVBOLUS ONE (20:30)
[2020-03-22] MEDS: MIDAZOLAM HCL 50 MG in SODIUM CHLORIDE 0.9% 40 ML IV PRN ×4 (03:14→19:58)
[2020-03-22] MEDS: ALBUTEROL/IPRATROPIUM 2.5MG/0.5MG, 3 ML INLINE SCH ×6 (03:15→23:00)
[2020-03-22] MEDS: QUETIAPINE 25MG TABLET PO SCH ×3 (05:06→22:02)
[2020-03-22 05:40] LABS: CHLORIDE 114 mmol/L (98-107)
[2020-03-22 05:46] LABS: MEAN CORPUSCULAR HEMOGLOBIN 30.2 pg (27.5-34.5); MEAN CORPUSCULAR HGB CONC 32.2 g/dL (33.2-36.2); MEAN CORPUSCULAR VOLUME 93.8 fL (81-97); MEAN PLATELET VOLUME 7.5 fL (7.4-10.4); PLATELET COUNT 223 x10^3/uL (130-400); RED BLOOD COUNT 3.31 x10^6/uL (4.38-5.82); RED CELL DISTRIBUTION WIDTH 16.4 % (9.4-14.8)
[2020-03-22 05:52] LABS: ANION GAP 12 mmol/L (5-15); CALCIUM 7.4 mg/dL (8.5-10.1); CREATININE 3.94 mg/dL (0.7-1.3); TRIGLYCERIDES 170 mg/dL (50-200)
[2020-03-22 06:12] LABS: BASOPHILS % (AUTO) 0 % (0-1); EOSINOPHILS % (AUTO) 0 % (1-7); LYMPHOCYTES % (AUTO) 3 % (22-44); MD SCAN; MONOCYTES # (AUTO) 0.19 x10^3/uL (0.2-0.8); MONOCYTES % (AUTO) 2 % (2-9); NEUTROPHILS # (AUTO) 12.52 x10^3/uL (1.8-6.8); NEUTROPHILS % (AUTO) 96 % (42-75)
[2020-03-22] MEDS: PROPOFOL 100 ML IV PRN (07:17)
[2020-03-22] MEDS: FENTANYL PF 2,500 MCG in SODIUM CHLORIDE 0.9% 200 ML IV PRN ×2 (07:20→19:58)
[2020-03-22] MEDS: DEXAMETHASONE 4 MG TABLET PO SCH ×2 (07:30→17:53)
[2020-03-22] MEDS: ASCORBIC ACID 500 MG TABLET PO SCH ×3 (08:00→17:54)
[2020-03-22] MEDS: INSULIN LISPRO 100 UNITS/ML, PEN SQ-INSULIN SCH ×3 (09:00→22:04)
[2020-03-22] MEDS: METOPROLOL TARTRATE 100 MG TAB PO SCH ×2 (09:00→21:00)
[2020-03-22] MEDS: ZINC SULFATE 220 MG CAPSULE PO SCH (09:00)
[2020-03-22] MEDS: TAMSULOSIN 0.4 MG CAP.ER.24H PO SCH (09:00)
[2020-03-22] MEDS: THIAMINE 100MG TABLET PO SCH ×2 (09:00→19:58)
[2020-03-22] MEDS: AZITHROMYCIN 500 MG TABLET PO SCH ×2 (09:00→14:00)
[2020-03-22] MEDS: CHOLECALCIFEROL 5,000u TAB PO SCH (09:00)
[2020-03-22] MEDS: SODIUM CHLORIDE FLUSH 10ML SYR IVF SCH ×2 (09:00→19:59)
[2020-03-22] MEDS: LIDOCAINE-MPF 1%, 2ML ENDO PRN ×2 (10:00→14:15)
[2020-03-22] MEDS: FUROSEMIDE 40 MG/4 ML IV SCH ×2 (10:06→19:58)
[2020-03-22] MEDS: FAMOTIDINE 20 MG/2 ML IVPush SCH (10:06)
[2020-03-22 11:07] LABS: MICROSCOPIC INDICATED
[2020-03-22 11:49] LABS: CREATININE,URINE RANDOM 86.1 mg/dL
[2020-03-22] MEDS: DOCUSATE 100 MG CAPSULE PO PRN (14:30)
[2020-03-22] MEDS: LACTULOSE 20 GM/30 ML UDC NG PRN (14:30)
[2020-03-22] MEDS: HEPARIN 25,000 UNITS/250ML PMX 250 ML IV PRN (14:41)
[2020-03-22] MEDS ORDERED: REMDESIVIR 200 MG in SODIUM CHLORIDE 0.9% 250 ML IVPB ONE (15:00)
[2020-03-22] MEDS: CEFTRIAXONE PMX 1GM/50ML 50 ML IV SCH (19:58)
[2020-03-23] MEDS: ALBUTEROL/IPRATROPIUM 2.5MG/0.5MG, 3 ML INLINE SCH ×6 (03:00→22:00)
[2020-03-23] MEDS: QUETIAPINE 25MG TABLET PO SCH ×3 (04:20→21:16)
[2020-03-23] MEDS: PROPOFOL 100 ML IV PRN ×2 (04:20→14:25)
[2020-03-23 05:01] LABS: MEAN CORPUSCULAR HEMOGLOBIN 30.2 pg (27.5-34.5); MEAN CORPUSCULAR HGB CONC 32.1 g/dL (33.2-36.2); MEAN CORPUSCULAR VOLUME 94.3 fL (81-97); MEAN PLATELET VOLUME 7.4 fL (7.4-10.4); PLATELET COUNT 217 x10^3/uL (130-400); RED BLOOD COUNT 3.23 x10^6/uL (4.38-5.82); RED CELL DISTRIBUTION WIDTH 16.7 % (9.4-14.8)
[2020-03-23 05:17] LABS: ANION GAP 7 mmol/L (5-15); CALCIUM 7.9 mg/dL (8.5-10.1); CHLORIDE 117 mmol/L (98-107)
[2020-03-23 05:18] LABS: CREATININE 3.21 mg/dL (0.7-1.3)
[2020-03-23 05:38] LABS: BASOPHILS % (AUTO) 0 % (0-1); EOSINOPHILS % (AUTO) 0 % (1-7); LYMPHOCYTES # (AUTO) 0.18 x10^3/uL (1-3.4); LYMPHOCYTES % (AUTO) 1 % (22-44); MD SCAN; MONOCYTES # (AUTO) 0.15 x10^3/uL (0.2-0.8); MONOCYTES % (AUTO) 1 % (2-9); NEUTROPHILS # (AUTO) 12.42 x10^3/uL (1.8-6.8); NEUTROPHILS % (AUTO) 97 % (42-75)
[2020-03-23] MEDS: HEPARIN 5,000 UNITS/ML, 1ML IV PRN (06:01)
[2020-03-23] MEDS: INSULIN LISPRO 100 UNITS/ML, PEN SQ-INSULIN SCH ×4 (06:01→21:25)
[2020-03-23] MEDS: AZITHROMYCIN 500 MG TABLET PO SCH (07:55)
[2020-03-23] MEDS: ZINC SULFATE 220 MG CAPSULE PO SCH (07:55)
[2020-03-23] MEDS: ASCORBIC ACID 500 MG TABLET PO SCH ×3 (07:55→17:00)
[2020-03-23] MEDS: FUROSEMIDE 40 MG/4 ML IV SCH ×2 (07:56→21:17)
[2020-03-23] MEDS: DEXAMETHASONE 4 MG TABLET PO SCH (07:56)
[2020-03-23] MEDS: FAMOTIDINE 20 MG/2 ML IVPush SCH (07:56)
[2020-03-23] MEDS: CHOLECALCIFEROL 5,000u TAB PO SCH (07:57)
[2020-03-23] MEDS: THIAMINE 100MG TABLET PO SCH ×2 (07:57→21:17)
[2020-03-23] MEDS: SODIUM CHLORIDE FLUSH 10ML SYR IVF SCH ×2 (07:57→21:18)
[2020-03-23] MEDS: TAMSULOSIN 0.4 MG CAP.ER.24H PO SCH (08:07)
[2020-03-23] MEDS: METOPROLOL TARTRATE 100 MG TAB PO SCH (08:08)
[2020-03-23] MEDS ORDERED: DEXTROSE 5% 1,000 ML IV SCH (08:30)
[2020-03-23] MEDS: HEPARIN 25,000 UNITS/250ML PMX 250 ML IV PRN (13:05)
[2020-03-23] MEDS: FENTANYL PF 2,500 MCG in SODIUM CHLORIDE 0.9% 200 ML IV PRN (14:25)
[2020-03-23] MEDS ORDERED: REMDESIVIR 100 MG in SODIUM CHLORIDE 0.9% 250 ML IVPB SCH (15:30)
[2020-03-23] MEDS: CEFTRIAXONE PMX 1GM/50ML 50 ML IV SCH (21:16)
[2020-03-24] MEDS: PROPOFOL 100 ML IV PRN ×4 (01:04→21:46)
[2020-03-24] MEDS: ALBUTEROL/IPRATROPIUM 2.5MG/0.5MG, 3 ML INLINE SCH ×6 (01:50→22:20)
[2020-03-24] MEDS: INSULIN LISPRO 100 UNITS/ML, PEN SQ-INSULIN SCH ×4 (03:56→21:22)
[2020-03-24 04:58] LABS: MEAN CORPUSCULAR HEMOGLOBIN 29.8 pg (27.5-34.5); MEAN CORPUSCULAR HGB CONC 31.9 g/dL (33.2-36.2); MEAN CORPUSCULAR VOLUME 93.6 fL (81-97); MEAN PLATELET VOLUME 7.7 fL (7.4-10.4); PLATELET COUNT 233 x10^3/uL (130-400); RED BLOOD COUNT 3.09 x10^6/uL (4.38-5.82); RED CELL DISTRIBUTION WIDTH 17.2 % (9.4-14.8)
[2020-03-24 05:06] LABS: INTERNATIONAL NORMALIZED RATIO 1.09 (0.93-1.1); PROTHROMBIN TIME 11.2 Seconds (9.6-11.5)
[2020-03-24 05:11] LABS: ALBUMIN 1.5 g/dL (3.4-5.0); ANION GAP 8 mmol/L (5-15); CALCIUM 8.1 mg/dL (8.5-10.1); CHLORIDE 114 mmol/L (98-107)
[2020-03-24 05:19] LABS: ALANINE AMINOTRANSFERASE 19 U/L (12-78); ALKALINE PHOSPHATASE 61 U/L (45-117); BILIRUBIN,TOTAL 0.2 mg/dL (0.2-1.0); CREATININE 2.94 mg/dL (0.7-1.3); TOTAL PROTEIN 6.3 g/dL (6.4-8.2)
[2020-03-24 05:23] LABS: C-REACTIVE PROTEIN, QUANT > 19.00 mg/dL (0.02-0.49)
[2020-03-24 05:52] LABS: BASOPHILS % (AUTO) 0 % (0-1); EOSINOPHILS % (AUTO) 0 % (1-7); LYMPHOCYTES # (AUTO) 0.23 x10^3/uL (1-3.4); LYMPHOCYTES % (AUTO) 2 % (22-44); MD SCAN; MONOCYTES % (AUTO) 1 % (2-9); NEUTROPHILS # (AUTO) 9.28 x10^3/uL (1.8-6.8); NEUTROPHILS % (AUTO) 97 % (42-75)
[2020-03-24] MEDS: QUETIAPINE 25MG TABLET PO SCH (06:15)
[2020-03-24] MEDS: FENTANYL PF 2,500 MCG in SODIUM CHLORIDE 0.9% 200 ML IV PRN ×2 (06:16→19:53)
[2020-03-24] MEDS: HEPARIN 25,000 UNITS/250ML PMX 250 ML IV PRN (08:05)
[2020-03-24] MEDS: HEPARIN 5,000 UNITS/ML, 1ML IV PRN (08:14)
[2020-03-24] MEDS: TAMSULOSIN 0.4 MG CAP.ER.24H PO SCH (09:00)
[2020-03-24] MEDS: SODIUM CHLORIDE FLUSH 10ML SYR IVF SCH ×2 (09:00→21:19)
[2020-03-24] MEDS: ZINC SULFATE 220 MG CAPSULE PO SCH (09:45)
[2020-03-24] MEDS: CHOLECALCIFEROL 5,000u TAB PO SCH (09:45)
[2020-03-24] MEDS: DEXAMETHASONE 4 MG TABLET PO SCH (09:45)
[2020-03-24] MEDS: ASCORBIC ACID 500 MG TABLET PO SCH ×3 (09:45→16:07)
[2020-03-24] MEDS: FUROSEMIDE 40 MG/4 ML IV SCH ×2 (09:46→21:19)
[2020-03-24] MEDS: THIAMINE 100MG TABLET PO SCH ×2 (09:46→21:19)
[2020-03-24] MEDS: FAMOTIDINE 20 MG/2 ML IVPush SCH (09:46)
[2020-03-24] MEDS: DOCUSATE 100 MG CAPSULE PO PRN (09:46)
[2020-03-24] MEDS: LACTULOSE 20 GM/30 ML UDC NG PRN (09:58)
[2020-03-24] MEDS: LABETALOL 5MG/ML, 20ML IVPush PRN (12:05)
[2020-03-24] MEDS ORDERED: VECURONIUM 10 MG ONE (12:13)
[2020-03-24] MEDS ORDERED: MIDAZOLAM 1 MG/ML, 5ML ONE (12:13)
[2020-03-24] MEDS ORDERED: VECURONIUM 10 MG IVPush ONE (13:00)
[2020-03-24] MEDS ORDERED: MIDAZOLAM 1 MG/ML, 5ML IVPush ONE (13:00)
[2020-03-24] MEDS ORDERED: FUROSEMIDE 40 MG/4 ML IV ONE (13:00)
[2020-03-24] MEDS: FENTANYL PF 100 MCG/2ML IVPush PRN (14:08)
[2020-03-24] MEDS ORDERED: REMDESIVIR 50 MG in SODIUM CHLORIDE 0.9% 250 ML IVPB SCH (16:00)
[2020-03-25] MEDS: PROPOFOL 100 ML IV PRN ×6 (01:42→23:57)
[2020-03-25] MEDS: ALBUTEROL/IPRATROPIUM 2.5MG/0.5MG, 3 ML INLINE SCH ×6 (02:20→22:35)
[2020-03-25] MEDS: INSULIN LISPRO 100 UNITS/ML, PEN SQ-INSULIN SCH ×4 (03:42→22:00)
[2020-03-25 03:48] LABS: MEAN CORPUSCULAR HEMOGLOBIN 30.1 pg (27.5-34.5); MEAN CORPUSCULAR HGB CONC 32.4 g/dL (33.2-36.2); MEAN PLATELET VOLUME 7.4 fL (7.4-10.4); PLATELET COUNT 258 x10^3/uL (130-400); RED BLOOD COUNT 3.34 x10^6/uL (4.38-5.82); RED CELL DISTRIBUTION WIDTH 17.3 % (9.4-14.8)
[2020-03-25 04:07] LABS: ALANINE AMINOTRANSFERASE 18 U/L (12-78); ALBUMIN 1.6 g/dL (3.4-5.0); ANION GAP 10 mmol/L (5-15); CALCIUM 8.5 mg/dL (8.5-10.1); CHLORIDE 113 mmol/L (98-107); CREATININE 2.93 mg/dL (0.7-1.3)
[2020-03-25 04:10] LABS: ALKALINE PHOSPHATASE 67 U/L (45-117); BILIRUBIN,TOTAL 0.5 mg/dL (0.2-1.0); TOTAL PROTEIN 6.9 g/dL (6.4-8.2)
[2020-03-25 04:11] LABS: BASOPHILS # (AUTO) 0.06 x10^3/uL (0-0.1); BASOPHILS % (AUTO) 1 % (0-1); EOSINOPHILS # (AUTO) 0.01 x10^3/uL (0-0.4); EOSINOPHILS % (AUTO) 0 % (1-7); LYMPHOCYTES # (AUTO) 0.26 x10^3/uL (1-3.4); LYMPHOCYTES % (AUTO) 3 % (22-44); MD SCAN; MONOCYTES # (AUTO) 0.12 x10^3/uL (0.2-0.8); MONOCYTES % (AUTO) 1 % (2-9); NEUTROPHILS # (AUTO) 8.64 x10^3/uL (1.8-6.8); NEUTROPHILS % (AUTO) 95 % (42-75)
[2020-03-25] MEDS: ACETAMINOPHEN 325 MG TABLET PO PRN (05:18)
[2020-03-25] MEDS ORDERED: VECURONIUM 10 MG ONE (06:16)
[2020-03-25] MEDS ORDERED: VECURONIUM 10 MG IVPush ONE (06:30)
[2020-03-25] MEDS: ZINC SULFATE 220 MG CAPSULE PO SCH (08:21)
[2020-03-25] MEDS: CHOLECALCIFEROL 5,000u TAB PO SCH (08:21)
[2020-03-25] MEDS: TAMSULOSIN 0.4 MG CAP.ER.24H PO SCH (08:21)
[2020-03-25] MEDS: FAMOTIDINE 20 MG/2 ML IVPush SCH (08:21)
[2020-03-25] MEDS: ASCORBIC ACID 500 MG TABLET PO SCH ×3 (08:22→16:23)
[2020-03-25] MEDS: DEXAMETHASONE 4 MG TABLET PO SCH (08:22)
[2020-03-25] MEDS: THIAMINE 100MG TABLET PO SCH ×2 (08:22→22:04)
[2020-03-25] MEDS: SODIUM CHLORIDE FLUSH 10ML SYR IVF SCH ×2 (08:22→22:07)
[2020-03-25] MEDS ORDERED: FUROSEMIDE 40 MG/4 ML IV SCH (09:00)
[2020-03-25] MEDS: VECURONIUM 50 MG in SODIUM CHLORIDE 0.9% 50 ML IV PRN ×3 (09:40→22:04)
[2020-03-25] MEDS: HEPARIN 25,000 UNITS/250ML PMX 250 ML IV PRN (09:57)
[2020-03-25] MEDS: FENTANYL PF 2,500 MCG in SODIUM CHLORIDE 0.9% 200 ML IV PRN (16:23)
[2020-03-26] MEDS: ALBUTEROL/IPRATROPIUM 2.5MG/0.5MG, 3 ML INLINE SCH ×2 (02:00→06:15)
[2020-03-26] MEDS: INSULIN LISPRO 100 UNITS/ML, PEN SQ-INSULIN SCH (03:00)
[2020-03-26] MEDS: LABETALOL 5MG/ML, 20ML IVPush PRN (03:42)
[2020-03-26] MEDS ORDERED: FUROSEMIDE 20 MG/2 ML IV ONE (05:00)
[2020-03-26] MEDS: VECURONIUM 50 MG in SODIUM CHLORIDE 0.9% 50 ML IV PRN (05:20)
[2020-03-26] MEDS: PROPOFOL 100 ML IV PRN (05:20)
[2020-03-26 05:32] LABS: CHLORIDE 115 mmol/L (98-107)
[2020-03-26 05:35] LABS: MEAN CORPUSCULAR HGB CONC 31.7 g/dL (33.2-36.2); MEAN CORPUSCULAR VOLUME 94.6 fL (81-97); MEAN PLATELET VOLUME 7.4 fL (7.4-10.4); PLATELET COUNT 244 x10^3/uL (130-400); RED BLOOD COUNT 3.88 x10^6/uL (4.38-5.82); RED CELL DISTRIBUTION WIDTH 17.6 % (9.4-14.8)
[2020-03-26 05:44] LABS: ALANINE AMINOTRANSFERASE 20 U/L (12-78); ALBUMIN 1.7 g/dL (3.4-5.0); ALKALINE PHOSPHATASE 75 U/L (45-117); ANION GAP 11 mmol/L (5-15); BILIRUBIN,TOTAL 0.9 mg/dL (0.2-1.0); CALCIUM 8.9 mg/dL (8.5-10.1); CREATININE 2.69 mg/dL (0.7-1.3); TOTAL PROTEIN 7.6 g/dL (6.4-8.2)
[2020-03-26] MEDS: FENTANYL PF 2,500 MCG in SODIUM CHLORIDE 0.9% 200 ML IV PRN (05:57)
[2020-03-26 05:59] LABS: BASOPHILS % (AUTO) 0 % (0-1); EOSINOPHILS # (AUTO) 0.11 x10^3/uL (0-0.4); EOSINOPHILS % (AUTO) 1 % (1-7); LYMPHOCYTES # (AUTO) 0.55 x10^3/uL (1-3.4); LYMPHOCYTES % (AUTO) 5 % (22-44); MD SCAN; MONOCYTES # (AUTO) 0.24 x10^3/uL (0.2-0.8); MONOCYTES % (AUTO) 2 % (2-9); NEUTROPHILS # (AUTO) 9.81 x10^3/uL (1.8-6.8); NEUTROPHILS % (AUTO) 92 % (42-75)
[2020-03-26] MEDS ORDERED: SODIUM CHLORIDE 0.9% 1,000ML IVBOLUS ONE (07:00)
[2020-03-26 08:05] LABS: D-DIMER (DIC) 13.39 ug/mlFEU (0.00-0.52); PROTIME 11.9 Seconds (9.6-11.5); PTT 67 Seconds (25-31)
[2020-03-26 08:15] LABS: FIBRINOGEN > 860 mg/dL (200-340)
[2020-03-26 08:20] LABS: PLATELET (DIC) 244 x10^3/uL (130-400)
[2020-03-26] MEDS ORDERED: EPINEPHRINE SYRINGE 0.1 MG/ML, 10ML ONE (08:30)
[2020-03-26] MEDS ORDERED: SODIUM BICARB 8.4%, 50ML SYRINGE ONE (08:30)
[2020-03-26] MEDS ORDERED: SODIUM BICARBONATE 1 MEQ/ML, 50ML VIAL IVPush STA (08:31)
== END 2020-03-26 09:25 | disposition expired | DRG 870 ==
LOC: ED 19:15 → EDIP 19:17 → ICU 21:12
PROVIDERS: ADMIT Family Medicine; ATTEND Internal Medicine
PROC: 5A1955Z Respiratory Ventilation, Greater than 96 Consecutive Hours (ICD-10-PCS; principal; 2020-03-19)
PROC: 0BH18EZ Insertion of Endotracheal Airway into Trachea, Via Natural or Artificial Opening Endoscopic (ICD-10-PCS; 2020-03-19)
PROC: 5A09357 Assistance with Respiratory Ventilation, Less than 24 Consecutive Hours, Continuous Positive Airway Pressure (ICD-10-PCS; 2020-03-19)
PROC: 02HV33Z Insertion of Infusion Device into Superior Vena Cava, Percutaneous Approach (ICD-10-PCS; 2020-03-23)
PROC: B548ZZA Ultrasonography of Superior Vena Cava, Guidance (ICD-10-PCS; 2020-03-23)
PROC: 5A12012 Performance of Cardiac Output, Single, Manual (ICD-10-PCS; 2020-03-26)
DX: A41.89 Other specified sepsis (principal); U07.1 COVID-19; J96.01 Acute respiratory failure with hypoxia; I50.33 Acute on chronic diastolic (congestive) heart failure; N17.0 Acute kidney failure with tubular necrosis; J12.89 Other viral pneumonia; E43 Unspecified severe protein-calorie malnutrition; G93.41 Metabolic encephalopathy; E87.0 Hyperosmolality and hypernatremia; I13.0 Hypertensive heart and chronic kidney disease with heart failure and stage 1 through stage 4 chronic kidney disease, or unspecified chronic kidney disease; N18.4 Chronic kidney disease, stage 4 (severe); D63.1 Anemia in chronic kidney disease; R65.20 Severe sepsis without septic shock; F15.90 Other stimulant use, unspecified, uncomplicated; I49.01 Ventricular fibrillation; J98.2 Interstitial emphysema; F19.10 Other psychoactive substance abuse, uncomplicated; I95.9 Hypotension, unspecified; Z68.29 Body mass index [BMI] 29.0-29.9, adult; Z79.899 Other long term (current) drug therapy; Z82.49 Family history of ischemic heart disease and other diseases of the circulatory system; Z83.3 Family history of diabetes mellitus
CPT/HCPCS: 36415; 36600; 74018; 84145; 96365; 96375; 99291; J3490; 36573; 71045; 80048; 80053; 80307; 81001; 82570; 82728; 82803; 82962; 83605; 83615; 83735; 84300; 84478; 84484; 85014; 85018; 85025; 85049; 85379; 85384; 85520; 85610; 85730; 86140; 86850; 86900; 86923; 87040; 87070; 87081; 87205; 87635; 92950; 93005; 94002; 94003; 94640; 94660; G0378; J0696; J1100; J1644; J1940; J2250; J2704; J3010; J7060; C1751; J0330; J0360; J1800; J7030; J7050